=== PATIENT | male | born 1980 | race African-American/Black ===

== ENCOUNTER 2019-05-15 16:52 | Emergency (ER) | payer SELFPAY ==
[~2019-05-15] VITALS: Ht 177.8 cm; Wt 81.2 kg
--- NOTE | 2019-05-15 18:16 | PHYS DOC ---
Past Medical History Past Medical History: Anxiety, Depression (SHOSHANA MENESES APRN) Additional Past Surgical Histo: REPAIRED SEPTUM (SHOSHANA MENESES APRN) Alcohol Use: Occasionally Drug Use: Marijuana (SHOSHANA MENESES APRN) Adult General Chief Complaint Chief Complaint: ANXIETY/PANIC ATTACK HPI HPI Patient is a 38 year old male that presents to the ER with anxiety. The patient has been having difficulty with family and has been depressed. The patient states that he will not hurt himself as he needs to look out for his kid. Denies any physical pain. (SHOSHANA MNEESES APRN) Review of Systems Review of Systems Constitutional: Denies fever or chills [] Eyes: Denies change in visual acuity, redness, or eye pain [] HENT: Denies nasal congestion or sore throat [] Respiratory: Denies cough or shortness of breath [] Cardiovascular: No additional information not addressed in HPI [] GI: Denies abdominal pain, nausea, vomiting, bloody stools or diarrhea [] : Denies dysuria or hematuria [] Musculoskeletal: Denies back pain or joint pain [] Integument: Denies rash or skin lesions [] Neurologic: Denies headache, focal weakness or sensory changes [] Endocrine: Denies polyuria or polydipsia [] Complete systems were reviewed and found to be within normal limits, except as documented in this note. (SHOSHANA MENESES APRN) Physical Exam Physical Exam Constitutional: Well developed, well nourished, no acute distress, non-toxic appearance. [] HENT: Normocephalic, atraumatic, bilateral external ears normal, oropharynx moist, no oral exudates, nose normal. [] Eyes: PERRLA, EOMI, conjunctiva normal, no discharge. [] Neck: Normal range of motion, no tenderness, supple, no stridor. [] Cardiovascular:Heart rate regular rhythm, no murmur [] Lungs & Thorax: Bilateral breath sounds clear to auscultation [] Abdomen: Bowel sounds normal, soft, no tenderness, no masses, no pulsatile masses. [] Skin: Warm, dry, no erythema, no rash. [] Back: No tenderness, no CVA tenderness. [] Extremities: No tenderness, no cyanosis, no clubbing, ROM intact, no edema. [] Neurologic: Alert and oriented X 3, normal motor function, normal sensory function, no focal deficits noted. [] Psychologic: Affect crying., judgement normal (SHOSHANA MENESES APRN) Current Patient Data Vital Signs Vital Signs Date Time Temp Pulse Resp B/P (MAP) Pulse Ox O2 Delivery O2 Flow Rate FiO2 05/15/19 18:45 82 15 127/85 (99) 99 Room Air 05/15/19 17:15 98.2 98.2 (SHOSHANA AHMADI DO) EKG EKG [] (SHOSHANA MENESES APRN) Radiology/Procedures Radiology/Procedures [] (SHOSHANA MENESES APRN) Course & Med Decision Making Course & Med Decision Making Pertinent Labs and Imaging studies reviewed. (See chart for details) Yury from [facility] evaluated patient and feels he is safe to go home. The patient is staying with family. He also gave him resources to follow up at [facility] and [facility]. Will d/c to follow up with resources. (SHOSHANA MENESES APRN) Dragon Disclaimer Dragon Disclaimer This electronic medical record was generated, in whole or in part, using a voice recognition dictation system. (SHOSHANA MENESES APRN) Departure Departure Impression: Primary Impression: Anxiety Disposition: 01 HOME, SELF-CARE Condition: STABLE Referrals: NO PCP (PCP) Patient Instructions: Anxiety and Panic Attacks, Suicidal Feelings, How to Help Yourself, Suicide, Helping Someone Who is Suicidal Additional Instructions: Thank you for visiting [facility]. We appreciate you trusting us with your care. If any additional problems come up don't hesitate to return to visit us. Please follow up with your primary care provider so they can plan additional care if needed and know about the problem that you had. If symptoms worsen come back to the Emergency Department. Any concerning symptoms that start such as chest pain, shortness of air, weakness or numbness on one side of the body, running high fevers or any other concerning symptoms return to the ER. Please follow up with resources that have been given to you. Come back if you start having increased suicidal thoughts. Attending Signature Attending Signature I have reviewed the PA/FLOTATION OPERATOR's note and plan of care. I was available for consultation as needed during the patient's visit in the emergency department. I agree with the clinical impression, plan, and disposition. (SHOSHANA AHMADI DO) SHOSHANA MENESES APRN May 15, 2019 18:16 SHOSHANA AHMADI DO May 16, 2019 18:08
[2019-05-15 18:45] VITALS: BP 127/85
== END 2019-05-15 18:53 | disposition home or self-care (01) ==
LOC: ER 16:52
DX: F41.9 Anxiety disorder, unspecified (principal); F32.9 Major depressive disorder, single episode, unspecified
CPT/HCPCS: 99284

== ENCOUNTER 2019-05-17 20:00 | Emergency (ER) | payer SELFPAY ==
[~2019-05-17] VITALS: Ht 175.3 cm; Wt 80.3 kg
[2019-05-17 20:26] LABS: BASO # 0.1 x10^3/uL (0.0-0.2); BASO % 1 % (0-3); EOS # 0.1 x10^3/uL (0.0-0.7); EOS % 1 % (0-3); HEMATOCRIT 43.5 % (39.0-53.0); HEMOGLOBIN 14.9 g/dL (13.0-17.5); LYMPH # 2.9 x10^3/uL (1.0-4.8); LYMPH % 37 % (24-48); MEAN CORPUSCULAR HEMOGLOBIN 31 pg (25-35); MEAN CORPUSCULAR HGB CONC 34 g/dL (31-37); MEAN CORPUSCULAR VOLUME 89 fL (79-100); MONO # 0.6 x10^3/uL (0.0-1.1); MONO % 8 % (0-9); NEUT # 4.2 x10^3/uL (1.8-7.7); NEUT % 54 % (31-73); PLATELET COUNT 286 x10^3/uL (140-400); RED BLOOD COUNT 4.87 x10^6/uL (4.30-5.70); RED CELL DISTRIBUTION WIDTH 13.8 % (11.5-14.5); WHITE BLOOD COUNT 7.9 x10^3/uL (4.0-11.0)
--- NOTE | 2019-05-17 20:28 | PHYS DOC ---
Past Medical History Past Medical History: Anxiety, Asthma, Depression Additional Past Surgical Histo: REPAIRED SEPTUM, index finger Smoking: Cigarettes Alcohol Use: Occasionally Drug Use: Marijuana Adult General Chief Complaint Chief Complaint: ANXIETY/PANIC ATTACK HPI HPI 38 year old male presents via EMS with report of chest pain which has been intermittent over the last few hours. Reports left sided chest pain which started at 1500 today. Patient reports he thinks more symptoms more likely due to anxiety/panic attacks. Patient reports increased life stressors including a "bad breakup" with significant other. Reports hasn't been able to see his kids daily. Patient reports decreased sleep and eating due to anxiety. Reports associated palpitations. Patient reports concern that this stress might be too much for his heart. Reports symptoms seem to improve when he is able to slow his breathing down. Reports his father had issues with his heart and requests to have his heart checked out. Cardiac risks factors including smoking and family history. Denies leg swelling or calf tenderness. Denies suicidal or homicidal ideation. Review of Systems Review of Systems Constitutional: Denies fever or chills Eyes: Denies redness or eye pain HENT: Denies nasal congestion or sore throat Respiratory: Denies cough or shortness of breath Cardiovascular: Reports chest pain and palpitations GI: Denies abdominal pain, nausea, or vomiting : Denies dysuria or hematuria Musculoskeletal: Denies back pain or joint pain Integument: Denies rash or skin lesions Neurologic: Denies headache, focal weakness or sensory changes Psychiatric: Reports anxiety; denies suicidal or homicidal ideation Complete systems were reviewed and found to be within normal limits, except as documented in this note. Current Medications Current Medications Current Medications Medications (Trade) Dose Ordered Sig/Blake Start Time Stop Time Status Last Admin Dose Admin Aspirin (Yen Aspirin) 325 mg 1X ONCE 05/17/19 20:30 05/17/19 20:31 DC 05/17/19 21:09 325 MG Lorazepam (Ativan Inj) 0.5 mg 1X ONCE 05/17/19 20:30 05/17/19 20:31 DC 05/17/19 21:09 0.5 MG Potassium Chloride (Klor-Con) 40 meq 1X ONCE 05/17/19 22:00 05/17/19 22:01 DC 05/17/19 21:52 40 MEQ Sodium Chloride 1,000 ml @ 1,000 mls/hr 1X ONCE 05/17/19 20:30 05/17/19 21:29 DC 05/17/19 21:09 1,000 MLS/HR Allergies Allergies Allergies Coded Allergies Type Severity Reaction Last Updated Verified No Known Drug Allergies 05/17/19 No Physical Exam Physical Exam Constitutional: Well developed, well nourished, no acute distress, non-toxic appearance, anxious HENT: Normocephalic, atraumatic, oropharynx moist Eyes: Conjunctiva normal, no discharge Neck: Normal range of motion, no tenderness, supple Cardiovascular: Heart rate bradycardic, regular rhythm Lungs & Thorax: Bilateral breath sounds clear to auscultation, no wheezing Abdomen: Soft, no tenderness Skin: Warm, dry, no erythema, no rash Extremities: No tenderness, ROM intact, no edema Neurologic: Alert and oriented X 3, normal motor function, normal sensory function, no focal deficits noted Psychologic: Affect anxious, judgement normal Current Patient Data Vital Signs Vital Signs Date Time Temp Pulse Resp B/P (MAP) Pulse Ox O2 Delivery O2 Flow Rate FiO2 05/17/19 20:05 97.9 55 14 131/72 (91) 100 Room Air 97.9 Lab Values Laboratory Tests Test 05/17/19 20:12 White Blood Count 7.9 x10^3/uL (4.0-11.0) Red Blood Count 4.87 x10^6/uL (4.30-5.70) Hemoglobin 14.9 g/dL (13.0-17.5) Hematocrit 43.5 % (39.0-53.0) Mean Corpuscular Volume 89 fL (79-100) Mean Corpuscular Hemoglobin 31 pg (25-35) Mean Corpuscular Hemoglobin Concent 34 g/dL (31-37) Red Cell Distribution Width 13.8 % (11.5-14.5) Platelet Count 286 x10^3/uL (140-400) Neutrophils (%) (Auto) 54 % (31-73) Lymphocytes (%) (Auto) 37 % (24-48) Monocytes (%) (Auto) 8 % (0-9) Eosinophils (%) (Auto) 1 % (0-3) Basophils (%) (Auto) 1 % (0-3) Neutrophils # (Auto) 4.2 x10^3/uL (1.8-7.7) Lymphocytes # (Auto) 2.9 x10^3/uL (1.0-4.8) Monocytes # (Auto) 0.6 x10^3/uL (0.0-1.1) Eosinophils # (Auto) 0.1 x10^3/uL (0.0-0.7) Basophils # (Auto) 0.1 x10^3/uL (0.0-0.2) Sodium Level 140 mmol/L (136-145) Potassium Level 3.1 mmol/L (3.5-5.1) L Chloride Level 103 mmol/L (98-107) Carbon Dioxide Level 22 mmol/L (21-32) Anion Gap 15 (6-14) H Blood Urea Nitrogen 12 mg/dL (8-26) Creatinine 1.0 mg/dL (0.7-1.3) Estimated GFR (Cockcroft-Gault) 101.2 BUN/Creatinine Ratio 12 (6-20) Glucose Level 92 mg/dL (70-99) Calcium Level 9.2 mg/dL (8.5-10.1) Magnesium Level 1.9 mg/dL (1.8-2.4) Total Bilirubin 0.7 mg/dL (0.2-1.0) Aspartate Amino Transferase (AST) 21 U/L (15-37) Alanine Aminotransferase (ALT) 30 U/L (16-63) Alkaline Phosphatase 85 U/L (46-116) Creatine Kinase 508 U/L (39-308) H Creatine Kinase MB (Mass) 1.1 ng/mL (0.0-3.6) Creatine Kinase MB Relative Index 0.2 % (0-4) Troponin I Quantitative < 0.017 ng/mL (0.000-0.055) BQ-Hmg-T-Type Natriuretic Peptide 15 pg/mL (0-124) Total Protein 8.2 g/dL (6.4-8.2) Albumin 4.0 g/dL (3.4-5.0) Albumin/Globulin Ratio 1.0 (1.0-1.7) Lipase 60 U/L (73-393) L Thyroid Stimulating Hormone (TSH) 1.432 uIU/mL (0.358-3.74) Free Thyroxine 1.16 ng/dL (0.76-1.46) Free Triiodothyronine (T3) pg/mL 3.14 pg/mL (2.18-3.98) Laboratory Tests 05/17/19 20:12 Laboratory Tests 05/17/19 20:12 EKG EKG @1959 Sinus bradycardia at 51bpm, NO ST elevation, occasional PAC, QRS 94ms, QT/QTc 432/400ms Radiology/Procedures Radiology/Procedures PROCEDURE: CHEST PA & LATERAL EXAM: PA and Lateral Views of the Chest DATE: 05/17/2019 8:14 PM INDICATION: Chest pain COMPARISON: No Prior FINDINGS: The heart is not enlarged. Calcified hilar lymph nodes are seen. No focal parenchymal airspace opacity. No pleural effusion or pneumothorax. IMPRESSION: 1. No radiographic evidence for acute cardiopulmonary process. Electronically signed by: Jr Peguero MD (05/17/2019 9:47 PM) [facility] Course & Med Decision Making Course & Med Decision Making Pertinent Labs and Imaging studies reviewed. (See chart for details) Patient presents with history of present illness and physical exam more consistent for anxiety/panic attacks. Patient does report increased life stressors. Patient does have some cardiac risk factors including smoking and family history. EKG stable. Labs obtained and posted to chart. Troponin within normal limits. Thyroid studies also within normal limits. Heart score 1. Chest x-ray without acute process. Anxiety addressed with interval improvement of symptoms. Patient stable for discharge with outpatient follow-up with PCP. Discussed findings and plan with patient, who acknowledges understanding and agreement. Dragon Disclaimer Dragon Disclaimer This electronic medical record was generated, in whole or in part, using a voice recognition dictation system. Departure Departure Impression: Primary Impression: Anxiety Additional Impressions: Atypical chest pain Palpitation Hypokalemia Disposition: 01 HOME, SELF-CARE Condition: STABLE Referrals: NO PCP (PCP) Patient Instructions: Anxiety and Panic Attacks, [id number], Chest Pain (Nonspecific), [id number], Palpitations, [id number] Scripts Lorazepam (ATIVAN) 0.5 Mg Tablet 0.5 MG PO TID PRN for ANXIETY, #10 TAB Prov: AHMADISHOSHANA DO 05/17/19 The HEART Score for CP Pts HEART Score for Chest Pain: HEART Score for Chest Pain Response (Comments) Value History Slighlty/Non-Suspicious 0 ECG Normal 0 Age < 45 0 Risk Factors 1 or 2 Risk Factors 1 Troponin < Normal Limit 0 Total 1 Risk Factors: Risk Factors: DM, Current or recent (<one month) smoker, HTN, HLP, family history of CAD, obesity. Risk Scores: Score 0 - 3: 2.5% MACE over next 6 weeks - Discharge Home Score 4 - 6: 20.3% MACE over next 6 weeks - Admit for Clinical Observation Score 7 - 10: 72.7% MACE over next 6 weeks - Early Invasive Strategies PERC Rule for PE PERC Rule for PE PERC Rule for PE Response (Comments) Value Age > 50: No 0 HR > 100: No 0 Sa02 on room air <95%: No 0 Unilateral leg swelling: No 0 Hemoptysis: No 0 Recent surgery or trauma: No 0 Prior PE or DVT: No 0 Hormone use: No 0 Total 0 Problem Qualifiers SHOSHANA AHMADI DO May 17, 2019 20:28
[2019-05-17] MEDS ORDERED: IV NORMAL SALINE 1000ML BAG 1,000 ML IV ONE (20:30)
[2019-05-17] MEDS ORDERED: ASPIRIN 325 MG TABLET PO ONE (20:30)
[2019-05-17 20:34] LABS: CALCIUM 9.2 mg/dL (8.5-10.1); GFR 101.2; POTASSIUM 3.1 mmol/L (3.5-5.1)
[2019-05-17 20:41] LABS: MAGNESIUM 1.9 mg/dL (1.8-2.4); TOTAL BILIRUBIN 0.7 mg/dL (0.2-1.0); TOTAL PROTEIN 8.2 g/dL (6.4-8.2)
[2019-05-17 20:51] LABS: FREE T4 1.16 ng/dL (0.76-1.46); THYROID STIM HORMONE (TSH) 1.432 uIU/mL (0.358-3.74)
[2019-05-17] MEDS ORDERED: LORA0.5T96 PO (21:41)
--- NOTE | 2019-05-17 21:50 | RAD ---
EXAM: PA and Lateral Views of the Chest DATE: 05/17/2019 8:14 PM INDICATION: Chest pain COMPARISON: No Prior FINDINGS: The heart is not enlarged. Calcified hilar lymph nodes are seen. No focal parenchymal airspace opacity. No pleural effusion or pneumothorax. IMPRESSION: 1. No radiographic evidence for acute cardiopulmonary process. Electronically signed by: Jr Peguero MD (05/17/2019 9:47 PM) [facility]
[2019-05-17] MEDS ORDERED: POTASSIUM CHLORIDE 20 MEQ TABLET.ER. PO ONE (22:00)
[2019-05-17 22:11] VITALS: BP 137/92
--- NOTE | 2019-05-18 10:16 | EKG ---
[facility] [address] [place] [address] Test Date: 2019-05-17 Test Time: 19:59:30 Pat Name: SANTI LINDQUIST Department: Room: Gender: M Pan Washer Hand: : 1980 Requested By: SHOSHANA AHMADI Order Number: [id number] Reading MD: Measurements Intervals [place] Rate: 51 P: 49 [place]: 186 QRS: 41 QRSD: 94 T: 49 QT: 432 QTc: 400 Interpretive Statements SINUS RHYTHM ATRIAL PREMATURE COMPLEX(ES) S1,S2,S3 PATTERN OTHERWISE NORMAL ECG No previous ECG available for comparison
== END 2019-05-17 22:31 | disposition home or self-care (01) ==
LOC: ER 20:00
DX: F41.9 Anxiety disorder, unspecified (principal); R07.89 Other chest pain; R00.2 Palpitations; E87.6 Hypokalemia; J45.909 Unspecified asthma, uncomplicated; F32.9 Major depressive disorder, single episode, unspecified; F17.210 Nicotine dependence, cigarettes, uncomplicated
CPT/HCPCS: 36415; 71046; 80053; 82553; 83690; 83735; 83880; 84439; 84443; 84481; 84484; 85025; 93005; 96374; 99285; J2060; J7030